=== PATIENT | female | born 1955 | race Hispanic/Latino ===

== ENCOUNTER 2017-07-31 10:19 | Emergency (ER) | payer MEDICAID ==
[2017-07-31 10:19] VITALS: BMI 31.5
[2017-07-31 10:38] VITALS: TEMP 98.1
[2017-07-31 11:32] VITALS: RESP 20; O2SAT 95
[2017-07-31 11:35] LABS: BASO # 0.1 K/uL (0.0-0.2); BASO % 0.8 % (0.0-2.0); EOS # 0.3 K/uL (0.0-0.7); LYMPH # 1.7 K/uL (1.0-4.3); MEAN CORPUSCULAR HGB CONC 31.2 g/dL (33.0-37.0); MEAN PLATELET VOLUME 6.8 fL (7.2-11.7); MONO # 0.6 K/uL (0.0-0.8); MONO % 5.3 % (0.0-10.0); NEUT # 8.8 K/uL (1.8-7.0); NEUT % 75.9 % (50.0-75.0); RBC 3.9 Mil/uL (3.80-5.20); RED CELL DISTRIBUTION WIDTH 17.1 % (11.5-14.5); WHITE BLOOD COUNT 11.6 K/uL (4.8-10.8)
[2017-07-31 11:42] LABS: MEAN CELL VOLUME 73.6 fL (81.0-99.0)
[2017-07-31 11:48] LABS: ALBUMIN 3.7 g/dL (3.5-5.0); ALT/SGPT 34 U/L (9-52); AST/SGOT 20 U/L (14-36); BLOOD UREA NITROGEN 9 mg/dL (7-17); GFR AFRICAN-AMERICAN > 60; GFR NON-AFRICAN AMERICAN > 60
--- NOTE | 2017-07-31 11:52 | RAD ---
HISTORY: cough, fever COMPARISON: Chest x-ray performed 11/15/15 TECHNIQUE: Chest PA and lateral FINDINGS: Examination limited by habitus. LUNGS: Medial left upper lobe and right lower lobe consolidations (likely pneumonia and/or atelectasis). Please note that chest x-ray has limited sensitivity for the detection of pulmonary masses. PLEURA: No significant pleural effusion identified. No definite pneumothorax . CARDIOVASCULAR: Cardiomegaly. OSSEOUS STRUCTURES: Degenerative changes. VISUALIZED UPPER ABDOMEN: Unremarkable. OTHER FINDINGS: None. IMPRESSION: Medial left upper lobe and right lower lobe consolidations (likely pneumonia and/or atelectasis). Correlate clinically and recommend follow-up upon completion of treatment for acute symptoms in order to assess for complete resolution. Cardiomegaly.
[2017-07-31 11:53] LABS: SQUAMOUS EPITHIAL 2 /hpf (0-5); URINE BILIRUBIN NEGATIVE (NEGATIVE); URINE BLOOD NEGATIVE (NEGATIVE); URINE CLARITY Hazy (Clear); URINE COLOR Amber (YELLOW); URINE GLUCOSE (UA) NORMAL (Normal); URINE LEUKOCYTE ESTERASE 1+ Leu/uL (Negative); URINE NITRATE NEGATIVE (NEGATIVE); URINE PROTEIN 1+ mg/dL (NEGATIVE); URINE UROBILINOGEN NORMAL mg/dL (0.2-1.0)
--- NOTE | 2017-07-31 12:15 | C.PDOC ---
History Of Present Illness 62-year-old female, presents to the emergency department with complaints of generalized weakness, cough, dizziness, fever and heaviness in chest for the past few days. Patient denies nausea/vomiting, back pain, symptoms, change in bowel habits or any other associated symptoms. No other complaint at this time Time Seen by Provider: 07/31/17 10:47 Chief Complaint (Nursing): Shortness Of Breath History Per: Patient History/Exam Limitations: no limitations Onset/Duration Of Symptoms: Days Current Symptoms Are (Timing): Still Present Past Medical History Reviewed: Historical Data, Nursing Documentation, Vital Signs Vital Signs: Last Vital Signs Temp 98.1 F 07/31/17 10:35 Pulse 97 H 07/31/17 12:31 Resp 20 07/31/17 12:31 BP 119/68 07/31/17 12:31 Pulse Ox 95 07/31/17 19:06 - Medical History PMH: Arthritis Family History: States: No Known Family Hx - Social History Hx Tobacco Use: No Hx Alcohol Use: Yes Hx Substance Use: No - Immunization History Hx Tetanus Toxoid Vaccination: No Hx Influenza Vaccination: No Hx Pneumococcal Vaccination: No Review Of Systems Except As Marked, All Systems Reviewed And Found Negative. Constitutional: Positive for: Fever, Weakness Cardiovascular: Negative for: Chest Pain Respiratory: Positive for: Cough. Negative for: Shortness of Breath, Sputum Gastrointestinal: Negative for: Nausea, Vomiting Musculoskeletal: Negative for: Back Pain Skin: Negative for: Rash Neurological: Positive for: Dizziness. Negative for: Headache Physical Exam - Physical Exam Appears: Well, Non-toxic, No Acute Distress Skin: Normal Color, Warm, Dry, No Rash Head: Atraumatic, Normacephalic Eye(s): bilateral: Normal Inspection, PERRL, EOMI Nose: Normal Oral Mucosa: Moist Lips: Normal Appearing Throat: No Erythema, No Exudate Neck: Normal ROM, Trachea Midline, Supple, Other (No meningeal signs) Chest: Symmetrical, No Tenderness Cardiovascular: Rhythm Regular, No Friction Rub, No Murmur Respiratory: No Accessory Muscle Use, Rhonchi, No Wheezing Gastrointestinal/Abdominal: Soft, No Tenderness Back: Normal Inspection, No CVA Tenderness Extremity: Normal ROM, No Tenderness, No Deformity, No Swelling Neurological/Psych: Oriented x3, Normal Speech, Normal Motor Gait: Steady ED Course And Treatment - Laboratory Results Result Diagrams: 07/31/17 11:31 07/31/17 11:31 O2 Sat by Pulse Oximetry: 95 (RA) Pulse Ox Interpretation: Normal Progress Note: IMPRESSION: Medial left upper lobe and right lower lobe consolidations (likely pneumonia and/or atelectasis). Correlate clinically and recommend follow-up upon completion of treatment for acute symptoms in order to assess for complete resolution. Cardiomegaly. Medical Decision Making Medical Decision Making: Plan: * EKG * Chest X-Ray * Labs * UA * Influenza AB * Reassess and Disposition Reassess: Case discussed with Dr Gallagher, states patient does not meet criteria for admission at this time, due to stable labs and vital signs. Patients O2 sat 95% RA. On re-exam, the patient reports improvement of symptoms. Lungs are CTA, heart is RRR, abdomen is soft, non-tender and tolerating PO well. Ambulatory in the ED with steady gait Disposition - Disposition Referrals: Scott Gallagher MD [Staff Provider] - Disposition: HOME/ ROUTINE Disposition Time: 12:00 Condition: FAIR Additional Instructions: Follow up with the medical doctor within 1-2 days. Return if worsened. Prescriptions: Azithromycin [Zithromax] 250 mg PO DAILY #6 tab Cephalexin [Keflex] 500 mg PO BID #19 capsule Ibuprofen [Motrin] 1 tab PO TID PRN #30 tab PRN Reason: Pain Instructions: Pneumonia, Adult (DC) Forms: [facility] (Welsh) - POA Present On Arrival: None - Clinical Impression Clinical Impression: Community acquired pneumonia - Scribe Statement The provider has reviewed the documentation as recorded by the Scribe (Tita Francois) All medical record entries made by the Scribe were at my direction and personally dictated by me. I have reviewed the chart and agree that the record accurately reflects my personal performance of the history, physical exam, medical decision making, and the department course for this patient. I have also personally directed, reviewed, and agree with the discharge instructions and disposition.
[2017-07-31 12:32] VITALS: BP 119/68; PULSE 97
[2017-07-31] MEDS ORDERED: cefTRIAXone IV 1 gm in Dextros 50 ML IV ONE (13:03)
[2017-07-31] MEDS ORDERED: cefTRIAXone IV 1 gm in Dextros 50 ML IVPB ONE (13:11)
--- NOTE | 2017-08-02 09:01 | CARD ---
APPROVED REPORT EKG Measurement Heart [id number] <Conclusion> Sinus tachycardia Right bundle branch block Left anterior fascicular block Bifascicular block Abnormal ECG
== END 2017-07-31 14:04 | disposition home or self-care (01) ==
LOC: C.ER 10:19
DX: J18.9 Pneumonia, unspecified organism (principal)
CPT/HCPCS: 71046; 80053; 81001; 84484; 85025; 87040; 87804; 93005; 96365; 99285; J0696

== ENCOUNTER 2017-08-04 05:35 | Emergency (ER) | payer MEDICAID ==
[2017-08-04 05:35] VITALS: BMI 31.5
--- NOTE | 2017-08-04 05:50 | C.PDOC ---
History Of Present Illness Patient was diagnosed with pneumonia 4 days ago and treated with zithromax and keflex. Pt states that she does not feel well. Somewhat anxious. Speaking in complete sentences. No f/c/n/v. States that she feels as if she's not getting enough air. No chest pain or palpitations Time Seen by Provider: 08/04/17 05:50 Chief Complaint (Nursing): Medical Clearance History Per: Patient History/Exam Limitations: no limitations Onset/Duration Of Symptoms: Days Current Symptoms Are (Timing): Still Present Severity: Moderate Pain Scale Rating Of: 4 Reports Recently: Seen In ED, Treated By A Physician Recent travel outside of the [place]: No Additional History Per: Patient Past Medical History Reviewed: Historical Data, Nursing Documentation, Vital Signs Vital Signs: Last Vital Signs Temp 99.2 F 08/04/17 05:42 Pulse 105 H 08/04/17 05:42 Resp 20 08/04/17 05:49 BP 135/80 08/04/17 05:42 Pulse Ox 94 L 08/04/17 06:09 - Medical History PMH: Arthritis, Pneumonia (07/31/17) Family History: States: No Known Family Hx - Social History Hx Tobacco Use: No Hx Alcohol Use: Yes Hx Substance Use: No - Immunization History Hx Tetanus Toxoid Vaccination: No Hx Influenza Vaccination: No Hx Pneumococcal Vaccination: No Review Of Systems Constitutional: Negative for: Fever, Chills Eyes: Negative for: Redness ENT: Negative for: Throat Pain Cardiovascular: Negative for: Chest Pain Respiratory: Positive for: Shortness of Breath Gastrointestinal: Negative for: Nausea, Vomiting, Abdominal Pain Genitourinary: Negative for: Dysuria Musculoskeletal: Negative for: Back Pain Skin: Negative for: Rash Neurological: Negative for: Weakness Psych: Positive for: Anxiety Physical Exam - Physical Exam Appears: Non-toxic, No Acute Distress Skin: Warm, Dry Head: Normacephalic Eye(s): bilateral: Normal Inspection Oral Mucosa: Moist Teeth: Edentulous Throat: No Erythema Neck: Trachea Midline, Supple Chest: Symmetrical Cardiovascular: Rhythm Regular Respiratory: Decreased Breath Sounds, No Rales, Rhonchi, No Wheezing Gastrointestinal/Abdominal: Soft, No Tenderness, No Distention Back: No CVA Tenderness Extremity: Normal ROM Extremity: Bilateral: Atraumatic Pulses: Left Dorsalis Pedis: Normal, Right Dorsalis Pedis: Normal Neurological/Psych: Oriented x3, Normal Speech, Normal Cognition Gait: Steady ED Course And Treatment - Laboratory Results Result Diagrams: 08/04/17 06:24 08/04/17 06:24 ECG: Interpreted By Me, Viewed By Me ECG Rhythm: Sinus Rhythm (88), R BBB, Nonspecific Changes O2 Sat by Pulse Oximetry: 94 Pulse Ox Interpretation: Normal - Radiology CXR: Interpreted by Me, Viewed By Me Reevaluation Time: 06:45 Reassessment Condition: Improved Disposition Counseled Patient/Family Regarding: Studies Performed, Diagnosis, Need For Followup, Rx Given - Disposition Referrals: Scott Gallagher MD [Primary Care Provider] - Disposition: HOME/ ROUTINE Disposition Time: 05:50 Condition: FAIR Additional Instructions: Please finish your antibiotics Prescriptions: Albuterol HFA [Ventolin HFA 90 mcg/actuation (8 g)] 2 puff IH [id number] #1 puff Instructions: Pneumonia in Adults Forms: [facility] (Belarusian) - Clinical Impression Clinical Impression: Community acquired pneumonia
[2017-08-04] MEDS ORDERED: Sodium Chloride 0.9% 1,000 ML IV ONE (06:00)
[2017-08-04] MEDS ORDERED: Albuterol-Ipratrop 3 mg / 0.5 (3 ml) UD ONE ×2 (06:18→06:59)
[2017-08-04 06:22] LABS: ABG ALLEN TEST POS; ARTERIAL BLOOD GAS HCO3 31.5 mmol/L (21-28); ARTERIAL BLOOD GAS O2 SAT 97.3 % (95-98); ARTERIAL BLOOD GAS PCO2 38 mm/Hg (35-45); ARTERIAL BLOOD GAS PH 7.53 (7.35-7.45); ARTERIAL BLOOD GAS PO2 76 mm/Hg (80-100)
[2017-08-04] MEDS: Albuterol-Ipratrop 3 mg / 0.5 (3 ml) UD IH SCH (06:22)
[2017-08-04 06:26] LABS: BASO % 0.2 % (0.0-2.0); EOS # 0.3 K/uL (0.0-0.7); EOS % 2.7 % (0.0-4.0); LYMPH # 1.8 K/uL (1.0-4.3); LYMPH % 13.9 % (20.0-40.0); MEAN CELL VOLUME 73.8 fL (81.0-99.0); MEAN CORPUSCULAR HEMOGLOBIN 23.3 pg (27.0-31.0); MEAN CORPUSCULAR HGB CONC 31.6 g/dL (33.0-37.0); MEAN PLATELET VOLUME 6.8 fL (7.2-11.7); MONO # 0.7 K/uL (0.0-0.8); MONO % 5.9 % (0.0-10.0); NEUT # 9.7 K/uL (1.8-7.0); NEUT % 77.3 % (50.0-75.0); RBC 3.86 Mil/uL (3.80-5.20); RED CELL DISTRIBUTION WIDTH 17.6 % (11.5-14.5); WHITE BLOOD COUNT 12.6 K/uL (4.8-10.8)
[2017-08-04] MEDS ORDERED: Sodium Chloride 0.9% 1,000 ML ONE (06:30)
[2017-08-04 06:35] LABS: INR 1.6; PROTHROMBIN TIME 18.4 SECONDS (9.7-12.2)
[2017-08-04 06:41] LABS: ALB/GLOB RATIO 0.9 (1.0-2.1); ALBUMIN 3.5 g/dL (3.5-5.0); ALT/SGPT 46 U/L (9-52); AST/SGOT 26 U/L (14-36); BLOOD UREA NITROGEN 6 mg/dL (7-17); CALCIUM 8.9 mg/dl (8.6-10.4); GFR AFRICAN-AMERICAN > 60; GFR NON-AFRICAN AMERICAN > 60; MAGNESIUM 2.1 mg/dL (1.6-2.3)
[2017-08-04] MEDS ORDERED: MethylPREDNISolone 40 mg Vial IVP STA (06:55)
[2017-08-04] MEDS ORDERED: Albuterol-Ipratrop 3 mg / 0.5 (3 ml) UD INH STA (06:55)
[2017-08-04 07:58] VITALS: O2SAT 95
[2017-08-04 08:05] VITALS: BP 125/68; PULSE 108; RESP 16; TEMP 99
--- NOTE | 2017-08-04 08:55 | RAD ---
PROCEDURE: CHEST RADIOGRAPH, 1 VIEW HISTORY: SOB COMPARISON: 07/31/2017 FINDINGS: LUNGS: Increasing opacity left superior paramediastinal. Infiltrate versus atelectasis. No other abnormal opacity seen elsewhere. PLEURA: No pneumothorax or pleural fluid seen. CARDIOVASCULAR: Normal. OSSEOUS STRUCTURES: No significant abnormalities. VISUALIZED UPPER ABDOMEN: Normal. OTHER FINDINGS: None. IMPRESSION: Increasing superior left paramediastinal opacity. Infiltrate versus atelectasis. Followup to clearing to exclude underlying neoplasm. Consider further evaluation with computed tomography of the chest.
--- NOTE | 2017-08-04 22:53 | CARD ---
APPROVED REPORT EKG Measurement Heart [id number] HI [id number] <Conclusion> Normal sinus rhythm Right bundle branch block Abnormal ECG
== END 2017-08-04 08:00 | disposition home or self-care (01) ==
LOC: C.ER 05:35 → SUPCPDRO 05:35 → C.ER 08:00
DX: J18.9 Pneumonia, unspecified organism (principal); Z87.891 Personal history of nicotine dependence
CPT/HCPCS: 36600; 71045; 80053; 82803; 83735; 85025; 85610; 85730; 87040; 93005; 96361; 96374; 99285; J2920; J7040

== ENCOUNTER 2017-08-04 10:34 | Inpatient (IN) | payer MEDICAID ==
[2017-08-04 10:35] VITALS: BMI 31.5
[2017-08-04 11:34] LABS: BASO % 0.2 % (0.0-2.0); EOS % 0.1 % (0.0-4.0); HEMOGLOBIN 9.1 g/dL (11.0-16.0); LYMPH # 0.7 K/uL (1.0-4.3); LYMPH % 4.8 % (20.0-40.0); MEAN CELL VOLUME 73.9 fL (81.0-99.0); MEAN CORPUSCULAR HGB CONC 31.1 g/dL (33.0-37.0); MEAN PLATELET VOLUME 6.9 fL (7.2-11.7); MONO # 0.2 K/uL (0.0-0.8); MONO % 1.1 % (0.0-10.0); NEUT # 14.3 K/uL (1.8-7.0); NEUT % 93.8 % (50.0-75.0); PLATELET COUNT 573 K/uL (130-400); RBC 3.97 Mil/uL (3.80-5.20); RED CELL DISTRIBUTION WIDTH 17.1 % (11.5-14.5); WHITE BLOOD COUNT 15.3 K/uL (4.8-10.8)
[2017-08-04] MEDS ORDERED: Iodixanol 320 mg/ml 150 ml Bottle IV ONE ×2 (11:50→12:34)
[2017-08-04 12:08] LABS: ANISOCYTOSIS SLIGHT; BANDS 2 % (0-2); BASOPHIL 1 % (0-2); EOSINOPHIL 1 % (0-4); LYMPHOCYTE 4 % (20-40); MONOCYTE 1 % (0-10); NEUTROPHIL 91 % (50-75); PLATELET ESTIMATE INCREASED (NORMAL); POIKILOCYTOSIS SLIGHT; TOTAL CELLS COUNTED 100
[2017-08-04 12:09] LABS: HYPOCHROMIC SLIGHT; MICROCYTOSIS SLIGHT
--- NOTE | 2017-08-04 12:12 | C.PDOC ---
History Of Present Illness 62 yo female came back to ED after was called back secondary to radiology discrepancy. Pt reports, had cold sx for past 3 days associated with malaise, dry cough, SOB. Pt was seen twice on 08/03/17 adn 08/04/17 and diagnosed with PNA, pt received Rx: Zithromax, Keflex, currently taking. Radiology reading from 08/04/17: increasing superior left paramediastinal opacity. Infiltrate vs atelectasis. F/u to exclude neoplasm. Case was discussed with pt's PMD , recommend to call back patient for CT chest. Time Seen by Provider: 08/04/17 10:35 Chief Complaint (Nursing): Abdominal Pain History Per: Patient Past Medical History Reviewed: Historical Data, Nursing Documentation, Vital Signs Vital Signs: Last Vital Signs Temp 98.6 F 08/04/17 13:15 Pulse 105 H 08/04/17 13:15 Resp 18 08/04/17 13:15 BP 150/92 H 08/04/17 10:43 Pulse Ox 96 08/04/17 16:10 - Medical History PMH: Arthritis, Pneumonia (07/31/17) Family History: States: Unknown Family Hx - Social History Hx Tobacco Use: No Hx Alcohol Use: Yes Hx Substance Use: No - Immunization History Hx Tetanus Toxoid Vaccination: No Hx Influenza Vaccination: No Hx Pneumococcal Vaccination: No Review Of Systems Except As Marked, All Systems Reviewed And Found Negative. Constitutional: Positive for: Malaise. Negative for: Fever, Chills ENT: Positive for: Nose Discharge, Nose Congestion. Negative for: Throat Pain Cardiovascular: Negative for: Chest Pain, Palpitations, Edema, Light Headedness Respiratory: Positive for: Cough, Shortness of Breath. Negative for: Wheezing Gastrointestinal: Negative for: Nausea, Vomiting, Abdominal Pain, Diarrhea Genitourinary: Negative for: Dysuria, Frequency Musculoskeletal: Negative for: Neck Pain Skin: Negative for: Rash Neurological: Negative for: Altered Mental Status Physical Exam - Physical Exam Appears: Well, Non-toxic, No Acute Distress Skin: Normal Color, Warm, Dry, No Rash Head: Normacephalic Eye(s): bilateral: PERRL Nose: No Flaring, No Discharge Oral Mucosa: Moist, No Drooling Throat: No Erythema, No Drooling Neck: Trachea Midline, Supple Cardiovascular: Rhythm Regular (tachy), No Murmur Respiratory: No Decreased Breath Sounds, No Accessory Muscle Use, No Stridor, No Wheezing Gastrointestinal/Abdominal: Soft, No Tenderness, No Distention, No Guarding Extremity: Normal ROM, No Pedal Edema, No Deformity Neurological/Psych: Oriented x3, Normal Speech ED Course And Treatment - Laboratory Results Result Diagrams: 08/04/17 11:29 ECG: Interpreted By Me, Viewed By Me Interpretation Of ECG: Sinus tachy@105/min, RBBB, no acute ST-T changes. O2 Sat by Pulse Oximetry: 96 Pulse Ox Interpretation: Normal - CT Scan/US CTA chest Other Rad Studies (CT/US): Radiology Report Reviewed CT/US Interpretation: PROCEDURE: CT Chest with contrast (Pulmonary Angiogram). HISTORY: SOB. COMPARISON: None available. TECHNIQUE: Axial computed tomography images were obtained of the chest in the pulmonary arterial phase of enhancement. Coronal and sagittal reformatted images were created and reviewed. Intravenous contrast dose: 100 mL Visipaque 320. Radiation dose: Total exam DLP = 578.57 mGy-cm. This CT exam was performed using one or more of the following dose reduction techniques: Automated exposure control, adjustment of the mA and/or kV according to patient size, and/or use of iterative reconstruction technique. FINDINGS: PULMONARY ARTERIES: Technically limited examination. No evidence of central pulmonary embolism. Subsegmental pulmonary artery branches are inadequately evaluated on the basis of this examination. Main, lobar and segmental vessels are adequately evaluated. AORTA: No acute findings. No thoracic aortic aneurysm. LUNGS: Pleural-based left upper lobe pulmonary mass measuring roughly 8.6 x 2.3 x 9.7 cm, with direct extension to the left hilum where there is hilar lymphadenopathy and marked narrowing of the left upper lobe pulmonary artery branches. PLEURAL SPACES: Unremarkable. No effusion or pneuomothorax. HEART: Normal heart size. No pericardial effusion. LYMPH NODES: Extensive left hilar and mediastinal lymphadenopathy. BONES, CHEST WALL: No lytic or blastic osseous lesion is identified. OTHER FINDINGS: Unremarkable. IMPRESSION: No evidence of pulmonary embolism. Evaluation technically limited and subsegmental pulmonary artery branches are not adequately evaluated. Large pleural-based left upper lobe mass directly extending to the hilum and with extensive associated mediastinal lymphadenopathy. Marked narrowing of left upper lobe pulmonary artery branches. Findings discussed by telephone with Dr. Ruth at 1:12 p.m. on 2017 Progress Note: Complete blood work review from early this AM visit and current. Case discussed with again, results review, admission recommend at present time for further evaluation of new LISA lumg mass. results discussed with pt. Understand and agrees with plan. Pt remained stable during the ED evaluation.Afebrile, hemodynamicaly stable. Disposition - Disposition Disposition: HOSPITALIZED Disposition Time: 13:28 Condition: STABLE - Clinical Impression Clinical Impression: Dyspnea, Lung mass
[2017-08-04 12:20] LABS: B-TYPE NATRIURETIC PEPTIDE 88.3 pg/mL (0-900)
--- NOTE | 2017-08-04 13:16 | CT ---
PROCEDURE: CT Chest with contrast (Pulmonary Angiogram) HISTORY: SOB COMPARISON: None available. TECHNIQUE: Axial computed tomography images were obtained of the chest in the pulmonary arterial phase of enhancement. Coronal and sagittal reformatted images were created and reviewed. Intravenous contrast dose: 100 mL Visipaque 320 Radiation dose: Total exam DLP = 578.57 mGy-cm. This CT exam was performed using one or more of the following dose reduction techniques: Automated exposure control, adjustment of the mA and/or kV according to patient size, and/or use of iterative reconstruction technique. FINDINGS: PULMONARY ARTERIES: Technically limited examination. No evidence of central pulmonary embolism. Subsegmental pulmonary artery branches are inadequately evaluated on the basis of this examination. Main, lobar and segmental vessels are adequately evaluated. AORTA: No acute findings. No thoracic aortic aneurysm. LUNGS: Pleural-based left upper lobe pulmonary mass measuring roughly 8.6 x 2.3 x 9.7 cm, with direct extension to the left hilum where there is hilar lymphadenopathy and marked narrowing of the left upper lobe pulmonary artery branches. PLEURAL SPACES: Unremarkable. No effusion or pneuomothorax. HEART: Normal heart size. No pericardial effusion. LYMPH NODES: Extensive left hilar and mediastinal lymphadenopathy. BONES, CHEST WALL: No lytic or blastic osseous lesion is identified. OTHER FINDINGS: Unremarkable. IMPRESSION: No evidence of pulmonary embolism. Evaluation technically limited and subsegmental pulmonary artery branches are not adequately evaluated. Large pleural-based left upper lobe mass directly extending to the hilum and with extensive associated mediastinal lymphadenopathy. Marked narrowing of left upper lobe pulmonary artery branches. Findings discussed by telephone with Dr. Ruth at 1:12 p.m. on 08/04/2017
[2017-08-04] MEDS: Albuterol 0.042% Inhal Sol (1.25 mg/3 mL) UD INH SCH (19:25)
--- NOTE | 2017-08-04 21:32 | CP.PCM.HP ---
History of Present Illness - History of Present Illness History of Present Illness: Patient was seen yesterday at [facility] ER yesterday still having congestion. Following discussion of chest xray, patient returned to ER for a CT scan of the chest. Proceedure demonstrated an upper lobe lung mass and patient was admitted. Present on Admission - Present on Admission Any Indicators Present on Admission: No History of DVT/PE: No History of Uncontrolled Diabetes: No Urinary Catheter: No Decubitus Ulcer Present: No History Surgical Site Infection Following: None Review of Systems - Review of Systems All systems: reviewed and no additional remarkable complaints except - Constitutional Constitutional: Fatigue, Fever, Malaise - Respiratory Respiratory: Dyspnea on Exertion Past Patient History - Infectious Disease Hx of Infectious Diseases: None - Past Medical History & Family History Past Medical History?: Yes - Past Social History Smoking Status: Never Smoked Chewing Tobacco Use: No Cigar Use: No Home Situation {Lives}: With Family - CARDIAC Hx Cardiac Disorders: No - PULMONARY Hx Respiratory Disorders: Yes Hx Pneumonia: Yes (07/31/17) - NEUROLOGICAL Hx Neurological Disorder: No - HEENT Hx HEENT Problems: No - RENAL Hx Chronic Kidney Disease: No Hx Dialysis: No - ENDOCRINE/METABOLIC Hx Endocrine Disorders: No - HEMATOLOGICAL/ONCOLOGICAL Hx Blood Disorders: No - INTEGUMENTARY Hx Dermatological Problems: No - MUSCULOSKELETAL/RHEUMATOLOGICAL Hx Musculoskeletal Disorders: Yes Hx Arthritis: Yes Hx Falls: No - GASTROINTESTINAL Hx Gastrointestinal Disorders: No - GENITOURINARY/GYNECOLOGICAL Hx Genitourinary Disorders: Yes Other/Comment: prolapsed uterus - PSYCHIATRIC Hx Psychophysiologic Disorder: No Hx Substance Use: No - SURGICAL HISTORY Hx Surgeries: Yes Hx Section: Yes - ANESTHESIA Hx Anesthesia: Yes Hx Anesthesia Reactions: No Hx Malignant Hyperthermia: No Has any member of the family had a problem w/ anesthesia?: No Meds Allergies/Adverse Reactions: Allergies Allergy/AdvReac Type Severity Reaction Status Date / Time No Known Allergies Allergy Verified 08/04/17 10:45 Physical Exam - Head Exam Head Exam: ATRAUMATIC - Respiratory Exam Respiratory Exam: Decreased Breath Sounds - Cardiovascular Exam Cardiovascular Exam: REGULAR RHYTHM - GI/Abdominal Exam GI & Abdominal Exam: Normal Bowel Sounds - Exam Exam: NORMAL INSPECTION External exam: NORMAL EXTERNAL EXAM - Neurological Exam Neurological exam: Oriented x3 - Psychiatric Exam Psychiatric exam: Depressed Results - Vital Signs Recent Vital Signs: Last Vital Signs Temp 98.7 F 08/04/17 18:07 Pulse 110 H 08/04/17 18:07 Resp 18 08/04/17 18:07 BP 138/74 08/04/17 18:07 Pulse Ox 99 08/04/17 18:07 - Labs Result Diagrams: 08/04/17 11:29 Labs: Laboratory Results - last 24 hr 08/04/17 08/04/17 08/04/17 11:29 11:45 11:51 WBC 15.3 H RBC 3.97 Hgb 9.1 L Hct 29.3 L MCV 73.9 L MCH 23.0 L MCHC 31.1 L RDW 17.1 H Plt Count 573 H MPV 6.9 L Neut % (Auto) 93.8 H Lymph % (Auto) 4.8 L [place] % (Auto) 1.1 Eos % (Auto) 0.1 Baso % (Auto) 0.2 Neut # (Auto) 14.3 H Lymph # (Auto) 0.7 L [place] # (Auto) 0.2 Eos # (Auto) 0.0 Baso # (Auto) 0.0 Neutrophils % (Manual) 91 H Band Neutrophils % 2 Lymphocytes % (Manual) 4 L Monocytes % (Manual) 1 Eosinophils % (Manual) 1 Basophils % (Manual) 1 Platelet Estimate Increased H Hypochromasia (manual) Slight Poikilocytosis (manual Slight Anisocytosis (manual) Slight Microcytosis (manual) Slight ESR 84 H Troponin I < 0.0120 NT-Pro-B Natriuret Pep 88.3 Influenza Typ A,B (EIA) Negative for flu a/b Assessment & Plan (1) Dyspnea Status: Acute (2) Lung mass Status: Acute (3) Arthritis Status: Acute (4) Pharyngitis Status: Acute
[2017-08-05 00:49] VITALS: RESP 20
[2017-08-05] MEDS: Albuterol HFA 90 mcg/actuation (8 g) IH SCH ×4 (02:28→19:17)
[2017-08-05] MEDS: Albuterol 0.042% Inhal Sol (1.25 mg/3 mL) UD INH SCH ×3 (02:28→13:48)
[2017-08-05 06:16] LABS: BASO # 0.1 K/uL (0.0-0.2); BASO % 0.4 % (0.0-2.0); EOS % 0.1 % (0.0-4.0); LYMPH # 2.2 K/uL (1.0-4.3); MEAN CORPUSCULAR HEMOGLOBIN 23.1 pg (27.0-31.0); MEAN CORPUSCULAR HGB CONC 31.6 g/dL (33.0-37.0); MEAN PLATELET VOLUME 6.9 fL (7.2-11.7); MONO # 1.1 K/uL (0.0-0.8); MONO % 5.5 % (0.0-10.0); NEUT # 16.4 K/uL (1.8-7.0); RBC 3.88 Mil/uL (3.80-5.20); RED CELL DISTRIBUTION WIDTH 17.4 % (11.5-14.5); WHITE BLOOD COUNT 19.8 K/uL (4.8-10.8)
[2017-08-05] MEDS ORDERED: Enoxaparin 40 mg Syringe SC SCH (10:00)
[2017-08-05] MEDS ORDERED: Iodixanol 320 mg/ml 150 ml Bottle IV ONE (10:47)
--- NOTE | 2017-08-05 11:52 | CT ---
PROCEDURE: CT Abdomen and Pelvis with contrast HISTORY: Abdominal pain COMPARISON: None. TECHNIQUE: CT scan of the abdomen and pelvis was performed after intravenous administration of contrast. Oral contrast was not administered. Coronal and sagittal reformatted images were obtained. Contrast dose: 100 mL Visipaque Radiation dose: Total exam DLP = 1037.96 mGy-cm. This CT exam was performed using one or more of the following dose reduction techniques: Automated exposure control, adjustment of the mA and/or kV according to patient size, and/or use of iterative reconstruction technique. FINDINGS: LOWER THORAX: The lung bases are clear. LIVER: The liver is normal in size and there is homogeneous enhancement. No gross lesion or ductal dilatation. GALLBLADDER AND BILE DUCTS: There are no calcified gallstones. The gallbladder is contracted. PANCREAS: Normal in size with homogeneous enhancement. No gross lesion or ductal dilatation. SPLEEN: There is mild splenomegaly without focal lesion. ADRENALS: No discrete nodule. KIDNEYS AND URETERS: Both kidneys are normal in size and there is homogeneous enhancement. No hydronephrosis. No solid mass. VASCULATURE: There are atherosclerotic aortoiliac calcifications. No aortic aneurysm. BOWEL: The stomach is fluid-filled. The small bowel loops are normal in caliber. There is mild colonic diverticulosis without CT evidence for acute diverticulitis. No bowel dilatation or obstruction. APPENDIX: Not visualized. No inflammatory changes in the right lower quadrant. PERITONEUM: No free fluid. No free air. LYMPH NODES: Few subcentimeter lymph nodes in the right lower quadrant. No enlarged lymph nodes. BLADDER: Decompressed. REPRODUCTIVE: Enlarged fibroid uterus with calcified and noncalcified fibroids. A low density lesion in the fundus could represent cystic degeneration in a fibroid however other mass lesions cannot be excluded. BONES: No acute fracture. OTHER FINDINGS: None. IMPRESSION: No acute abdominal or pelvic abnormality. Mild splenomegaly. Mild colonic diverticulosis without CT evidence for acute diverticulitis. Enlarged fibroid uterus. A low density lesion in the fundus of the uterus could represent cystic degeneration in the fibroid however other mass lesion cannot be excluded. Correlation with pelvic ultrasound is advised.
[2017-08-05] MEDS: Piperacill/Tazo 3.375gm in Dex 3.375 GM/50 ML BAG IVPB SCH ×2 (13:58→19:32)
--- NOTE | 2017-08-05 15:12 | CP.PCM.CON ---
History of Present Illness - History of Present Illness History of Present Illness: Reason for consultation: Left upper lobe mass. Requested by Dr. Gallagher Pt s/e at the bedside. 62yo female, with smoking hx, and recent wt loss(20#/one month) who was admitted with incidentally discovered left upper lobe density which on CT in the ER was noted to be left upper lobe mass. She is scheduled for transthoracic percutaneous bx tomorrow by IR. Based on imaging studies(ct and cxr): T3, N2, M0 -Stage IIIA, if pulmonary malignancy. Will probably upstage with a furhter w/u. I would recommend PET ct, PFTs with ABG on room air. Will follow. a/p: Left lung mass. Etiol ? T3, N0, M0-Stage IIIA, if pulmonary malignancy. Percutaneous Bx as scheduled. PET scan, PFTs with ABG on room air. Bronchoscopy. D/W Brenden Gallagher and Wade. Will follow. Past Patient History - Infectious Disease Hx of Infectious Diseases: None - Past Medical History & Family History Past Medical History?: Yes - Past Social History Smoking Status: Never Smoked Chewing Tobacco Use: No Cigar Use: No Home Situation {Lives}: With Family - CARDIAC Hx Cardiac Disorders: No - PULMONARY Hx Respiratory Disorders: Yes Hx Pneumonia: Yes (07/31/17) - NEUROLOGICAL Hx Neurological Disorder: No - HEENT Hx HEENT Problems: No - RENAL Hx Chronic Kidney Disease: No Hx Dialysis: No - ENDOCRINE/METABOLIC Hx Endocrine Disorders: No - HEMATOLOGICAL/ONCOLOGICAL Hx Blood Disorders: No - INTEGUMENTARY Hx Dermatological Problems: No - MUSCULOSKELETAL/RHEUMATOLOGICAL Hx Musculoskeletal Disorders: Yes Hx Arthritis: Yes Hx Falls: No - GASTROINTESTINAL Hx Gastrointestinal Disorders: No - GENITOURINARY/GYNECOLOGICAL Hx Genitourinary Disorders: Yes Other/Comment: prolapsed uterus - PSYCHIATRIC Hx Psychophysiologic Disorder: No Hx Substance Use: No - SURGICAL HISTORY Hx Surgeries: Yes Hx Section: Yes - ANESTHESIA Hx Anesthesia: Yes Hx Anesthesia Reactions: No Hx Malignant Hyperthermia: No Has any member of the family had a problem w/ anesthesia?: No Meds Allergies/Adverse Reactions: Allergies Allergy/AdvReac Type Severity Reaction Status Date / Time No Known Allergies Allergy Verified 08/04/17 10:45 - Medications Medications: Current Medications Albuterol (Ventolin Hfa 90 Mcg/Actuation (8 G)) 2 puff IH RQ6 [facility] Last Admin: 08/05/17 13:49 Dose: Not Given Albuterol Sulfate (Albuterol 0.042% Inhal Saida (1.25mg/3ml) Ud) 1.25 mg INH RQ6 [facility] Last Admin: 08/05/17 13:48 Dose: 1.25 mg Heparin Sodium (Porcine) (Heparin) 5,000 units IV Q12 [facility] Piperacillin Sod/Tazobactam Sod (Zosyn 3.375 Gm Iv Premix) 3.375 gm in 50 mls @ 100 mls/hr IVPB Q6H [facility] PRN Reason: Protocol Last Admin: 08/05/17 13:58 Dose: 100 mls/hr Results - Vital Signs Recent Vital Signs: Last Vital Signs Temp 99.3 F 08/05/17 08:39 Pulse 101 H 08/05/17 08:51 Resp 20 08/05/17 08:39 BP 121/70 08/05/17 08:39 Pulse Ox 95 08/05/17 08:39 - Labs Result Diagrams: 08/05/17 06:06 08/05/17 06:06 Labs: Laboratory Results - last 24 hr 08/05/17 08/05/17 06:06 06:06 WBC 19.8 H RBC 3.88 Hgb 9.0 L Hct 28.3 L MCV 73.0 L MCH 23.1 L MCHC 31.6 L RDW 17.4 H Plt Count 545 H MPV 6.9 L Neut % (Auto) 83.0 H Lymph % (Auto) 11.0 L [place] % (Auto) 5.5 Eos % (Auto) 0.1 Baso % (Auto) 0.4 Neut # (Auto) 16.4 H Lymph # (Auto) 2.2 [place] # (Auto) 1.1 H Eos # (Auto) 0.0 Baso # (Auto) 0.1 Sodium 145 Potassium 4.0 Chloride 100 Carbon Dioxide 32 H BUN 6 L Carcinoembryonic Ag 7.5 H
[2017-08-05] MEDS ORDERED: Albuterol 0.042% Inhal Sol (1.25 mg/3 mL) UD INH PRN (19:15)
--- NOTE | 2017-08-05 21:25 | CARD ---
APPROVED REPORT EKG Measurement Heart [id number] <Conclusion> Sinus tachycardia Right bundle branch block Abnormal ECG
[2017-08-05] MEDS: Promethazine 6.25 MG/5 ML CUP PO SCH (22:27)
--- NOTE | 2017-08-05 23:22 | CP.PCM.PN ---
Subjective - Date & Time of Evaluation Date of Evaluation: 08/05/17 Time of Evaluation: 13:20 - Subjective Subjective: Patient alert and responsive. Ct scan of the chest reveals a large upper lobe mass. Consultation with thoracic surgery requested. Objective - Vital Signs/Intake and Output Vital Signs (last 24 hours): Temp Pulse Resp BP Pulse Ox 99.1 F 100 H 20 137/64 96 08/05/17 16:00 08/05/17 16:00 08/05/17 16:00 08/05/17 16:00 08/05/17 16:00 Intake and Output: 08/05/17 08/06/17 18:59 06:59 Intake Total 830 Balance 830 - Medications Medications: Current Medications Albuterol (Ventolin Hfa 90 Mcg/Actuation (8 G)) 2 puff IH RQ6 [facility] Last Admin: 08/05/17 19:17 Dose: 3 mg Albuterol Sulfate (Albuterol 0.042% Inhal Saida (1.25mg/3ml) Ud) 1.25 mg INH RQ6 PRN Alprazolam (Xanax) 0.5 mg PO HS PRN PRN Reason: Anxiety Last Admin: 08/05/17 21:48 Dose: 0.5 mg Heparin Sodium (Porcine) (Heparin) 5,000 units IV Q12 [facility] Piperacillin Sod/Tazobactam Sod (Zosyn 3.375 Gm Iv Premix) 3.375 gm in 50 mls @ 100 mls/hr IVPB Q6H [facility] PRN Reason: Protocol Last Admin: 08/05/17 19:32 Dose: 100 mls/hr Promethazine HCl (Phenergan Syrup) 6.25 mg PO QID [facility] Last Admin: 08/05/17 22:27 Dose: 6.25 mg - Labs Labs: 08/05/17 06:06 08/05/17 06:06 Assessment and Plan (1) Dyspnea Status: Acute (2) Lung mass Status: Acute (3) Arthritis Status: Acute (4) Pharyngitis Status: Acute
[2017-08-06] MEDS: Albuterol HFA 90 mcg/actuation (8 g) IH SCH ×4 (01:53→19:03)
[2017-08-06] MEDS: Piperacill/Tazo 3.375gm in Dex 3.375 GM/50 ML BAG IVPB SCH ×3 (02:45→13:59)
[2017-08-06] MEDS: Promethazine 6.25 MG/5 ML CUP PO SCH ×4 (09:21→21:50)
--- NOTE | 2017-08-06 14:48 | NM ---
PROCEDURE: Whole Body Bone Scan HISTORY: mass of the lung COMPARISON: None available. TECHNIQUE: Following administration of 21.4 miCu of Tc MDP multiplanar whole body images were obtained. FINDINGS: Evidence for bony metastatic disease: None. Degenerative uptake: Bilateral knees and ankles. Degenerative changes also identified in the cervical spine. Physiologic uptake: Normal physiologic activity in the kidneys. Other findings: None. IMPRESSION: No evidence of bony metastatic disease.
[2017-08-06] MEDS ORDERED: Piperacillin/Tazobact 3.375 GM in Sodium Chloride 0.9% 100 ML IVPB SCH (15:00)
[2017-08-06 17:13] LABS: INR 1.7; PROTHROMBIN TIME 19.5 SECONDS (9.7-12.2)
[2017-08-06] MEDS: Piperacillin/Tazobact 3.375 GM in Sodium Chloride 0.9% 100 ML IVPB SCH (19:37)
--- NOTE | 2017-08-06 21:54 | CP.PCM.PN ---
Subjective - Date & Time of Evaluation Date of Evaluation: 08/06/17 Time of Evaluation: 12:40 - Subjective Subjective: Patient had bone scan today. She was evaluated by Dr Ann. Will need broncoscopy. Objective - Vital Signs/Intake and Output Vital Signs (last 24 hours): Temp Pulse Resp BP Pulse Ox 100.6 F H 110 H 20 112/72 95 08/06/17 16:00 08/06/17 16:00 08/06/17 16:00 08/06/17 16:00 08/06/17 16:00 Intake and Output: 08/06/17 08/07/17 18:59 06:59 Intake Total 900 Balance 900 - Medications Medications: Current Medications Albuterol (Ventolin Hfa 90 Mcg/Actuation (8 G)) 2 puff IH RQ6 [facility] Last Admin: 08/06/17 19:03 Dose: Not Given Albuterol Sulfate (Albuterol 0.042% Inhal Saida (1.25mg/3ml) Ud) 1.25 mg INH RQ6 PRN Last Admin: 08/06/17 07:50 Dose: 1.25 mg Alprazolam (Xanax) 0.5 mg PO HS PRN PRN Reason: Anxiety Last Admin: 08/05/17 21:48 Dose: 0.5 mg Heparin Sodium (Porcine) (Heparin) 5,000 units IV Q12 [facility] Last Admin: 08/06/17 09:23 Dose: 5,000 units Piperacillin Sod/Tazobactam (Sod 3.375 gm/ Sodium Chloride) 100 mls @ 100 mls/ hr IVPB Q6H [facility] PRN Reason: Protocol Last Admin: 08/06/17 19:37 Dose: 100 mls/hr Promethazine HCl (Phenergan Syrup) 6.25 mg PO QID [facility] Last Admin: 08/06/17 21:50 Dose: 6.25 mg - Labs Labs: 08/05/17 06:06 08/05/17 06:06 PT 19.5 SECONDS (9.7-12.2) H 08/06/17 17:00 INR 1.7 08/06/17 17:00 APTT 34 SECONDS (21-34) 08/06/17 17:00 - Constitutional Appears: No Acute Distress - Head Exam Head Exam: NORMOCEPHALIC - Eye Exam Eye Exam: Normal appearance - ENT Exam ENT Exam: Normal Oropharynx - Neck Exam Neck Exam: Normal Inspection - Respiratory Exam Respiratory Exam: Decreased Breath Sounds - Cardiovascular Exam Cardiovascular Exam: REGULAR RHYTHM - GI/Abdominal Exam GI & Abdominal Exam: Hyperactive Bowel Sounds - Rectal Exam Rectal Exam: Deferred - Exam External exam: NORMAL EXTERNAL EXAM - Extremities Exam Extremities Exam: Normal Inspection - Back Exam Back Exam: NORMAL INSPECTION - Neurological Exam Neurological Exam: Oriented x3 - Psychiatric Exam Psychiatric exam: Depressed Assessment and Plan (1) Dyspnea Status: Acute (2) Lung mass Status: Acute (3) Arthritis Status: Acute (4) Pharyngitis Status: Acute
--- NOTE | 2017-08-06 23:12 | CON ---
DATE: 08/05/2017 HISTORY OF PRESENT ILLNESS: The patient was seen yesterday by me on consultation. The patient was interviewed in detail and examined, and her condition was discussed with MD and nurse practitioner and orders were written for further management. I also discussed the patient with thoracic surgeon. This note is for consultation performed yesterday on 08/05/2017. This is a 62-year-old lady with a history of smoking in the past, but she stopped smoking 20 years ago. She has a past history of arthritis for over two years and history of uterine prolapse and section. About two weeks ago, she developed respiratory illness with cough, sputum production, which was mucoid, chills, dyspnea, and decreased appetite. She was treated with antibiotics. However although she does not have chills now, but she complains of cough and shortness of breath on exertion with some tightness in the chest and scanty sputum after bouts of cough. CT of the chest shows left upper lobe lung mass and mediastinal lymphadenopathy. The patient was admitted for further evaluation, procedure, and treatment. She stopped smoking over 20 years ago. She does not consume alcohol. There is no history of allergy. PAST MEDICAL HISTORY: Arthritis, uterine prolapse, and section. FAMILY HISTORY: Reported as unremarkable. REVIEW OF SYSTEMS: NEURO: Unremarkable. HEENT: Complains of postnasal drip. CARDIOVASCULAR SYSTEMS: No significant symptoms reported except for shortness of breath on exertion with the feeling of tightness in the chest. RESPIRATORY: As stated above with shortness of breath, cough, and chest tightness. GI: Complaints of diminished appetite and has lost some weight. RENAL: No symptoms. MUSCULOSKELETAL: Arthritis reported. ENDOCRINE: No history of diabetes or blood disorders. No significant history obtained. PHYSICAL EXAMINATION: GENERAL: The patient is alert, oriented. She was not in acute distress at rest. VITAL SIGNS: Blood pressure 110/64, temperature 99.1, pulse 98, respirations 20 per minute, and oxygen saturation on room air was 94%. NECK: Supple. There was no lymphadenopathy. HEENT: Unremarkable. HEART: Regular. No gallop, rhythm. LUNGS: Diminished breath sounds over the lung bases and left upper lobe area and occasional rhonchi. ABDOMEN: Soft. EXTREMITIES: No edema. Deep tendon reflexes showed no abnormality. Motor and sensory examination showed no abnormality. LABORATORY DATA: White count 19,800, hemoglobin 9, platelet count 545,000 with leukocyte 83%, bands 16, sed rate 84. Serum sodium 145, potassium 4, BUN 6, troponin less than 0.012. CEA 7.5, proBNP 88. CT of the chest reported to show large left pleural based left upper lobe mass directly extending to the hilum with extensive associated mediastinal lymphadenopathy and narrowing of the left upper lobe pulmonary artery branches. IMPRESSION: Respiratory insufficiency. Left upper lobe mass with mediastinal lymphadenopathy. Pneumonitis. RECOMMENDATIONS AND PLAN: I agree with management. Further workup as needed. I have ordered consult for intervention radiologist for transthoracic needle aspiration biopsy of the lung mass. The patient has been started on antibiotics for pneumonitis, and also oxygen and bronchodilators. PFT and bone scan will be done and oxygen therapy continued. Case discussed with PMD and thoracic surgeon. Joaquín Olvera MD
[2017-08-07] MEDS: Piperacillin/Tazobact 3.375 GM in Sodium Chloride 0.9% 100 ML IVPB SCH ×2 (01:30→08:01)
[2017-08-07] MEDS: Albuterol HFA 90 mcg/actuation (8 g) IH SCH ×2 (01:36→08:12)
[2017-08-07 07:19] LABS: BASO # 0.1 K/uL (0.0-0.2); BASO % 0.7 % (0.0-2.0); EOS # 0.4 K/uL (0.0-0.7); EOS % 2.7 % (0.0-4.0); HEMOGLOBIN 9.2 g/dL (11.0-16.0); LYMPH # 1.8 K/uL (1.0-4.3); LYMPH % 12.8 % (20.0-40.0); MEAN CELL VOLUME 73.3 fL (81.0-99.0); MEAN CORPUSCULAR HEMOGLOBIN 23.4 pg (27.0-31.0); MEAN CORPUSCULAR HGB CONC 31.9 g/dL (33.0-37.0); MEAN PLATELET VOLUME 6.9 fL (7.2-11.7); MONO # 0.9 K/uL (0.0-0.8); MONO % 6.5 % (0.0-10.0); NEUT % 77.3 % (50.0-75.0); RBC 3.92 Mil/uL (3.80-5.20); RED CELL DISTRIBUTION WIDTH 17.9 % (11.5-14.5); WHITE BLOOD COUNT 14.2 K/uL (4.8-10.8)
--- NOTE | 2017-08-07 07:30 | PN ---
DATE: SUBJECTIVE: The patient is alert, oriented, sitting with the visitors, her daughter is with the patient. PHYSICAL EXAMINATION: VITAL SIGNS: The patient is afebrile with blood pressure of 124/70, pulse 99, respirations 20, hemoglobin oxygen saturation of 96% on room air. GENERAL: The patient feels comfortable. She feels her dyspnea is a lot easier after therapy including inhalation bronchodilators. HEART: Regular. There is no gallop rhythm. LUNGS: Diminished breath sounds over lung bases, rhonchi decreasing. ABDOMEN: Soft. LEGS: No edema. The patient was seen by a thoracic surgeon. IMPRESSION: Respiratory insufficiency, left upper lobe lung mass with clear mediastinal lymphadenopathy, pneumonitis. PLAN: To continue with current management and follow with specialist including thoracic surgeon and interventional radiologist. Joaquín Olvera MD
[2017-08-07 07:57] VITALS: O2SAT 95
[2017-08-07] MEDS ORDERED: Propofol 10 mg/ml Inj (20 ML) ONE (09:39)
[2017-08-07] MEDS ORDERED: Midazolam 2 MG/2 ML VIAL ONE (09:40)
--- NOTE | 2017-08-07 10:13 | PCM.IRP ---
History of Present Illness - History of Present Illness History of Present Illness: IR requested for LISA mass biopsy. CT reviewed. Pt with extensive subcarinal, hilar, ap window, anterior mediastinal adopathy. There is a component of atelectasis in the previously measured mass. Percutaneous biospy is not possible secondary to pulmonary arteries coursing through the mass. Recommend bronchoscopy. Objective - Vital Signs/Intake and Output Vital Signs (last 24 hours): Vital Signs - 24 hr 08/06/17 08/07/17 08/07/17 16:00 00:00 04:00 Temperature 100.6 F H 100.4 F H 98.6 F Pulse Rate 110 H 108 H Respiratory 20 20 Rate Blood Pressure 112/72 105/67 O2 Sat by Pulse 95 93 L Oximetry 08/07/17 07:55 Temperature 98.7 F Pulse Rate 100 H Respiratory 20 Rate Blood Pressure 124/72 O2 Sat by Pulse 95 Oximetry Intake and Output (last 12 hours): Intake & Output 08/06/17 08/07/17 08/07/17 18:59 06:59 18:59 Intake Total 900 Balance 900 Intake: Intake, IV Amount 200 Right Forearm 200 Oral 700 Other: # Voids Urine, Voided 4 # Bowel Movements 1 - Medications Medications: Current Medications Albuterol (Ventolin Hfa 90 Mcg/Actuation (8 G)) 2 puff IH RQ6 [facility] Last Admin: 08/07/17 08:12 Dose: Not Given Albuterol Sulfate (Albuterol 0.042% Inhal Saida (1.25mg/3ml) Ud) 1.25 mg INH RQ6 PRN Last Admin: 08/06/17 07:50 Dose: 1.25 mg Alprazolam (Xanax) 0.5 mg PO HS PRN PRN Reason: Anxiety Last Admin: 08/05/17 21:48 Dose: 0.5 mg Heparin Sodium (Porcine) (Heparin) 5,000 units IV Q12 [facility] Last Admin: 08/06/17 10:00 Dose: Not Given Piperacillin Sod/Tazobactam (Sod 3.375 gm/ Sodium Chloride) 100 mls @ 100 mls/ hr IVPB Q6H [facility] PRN Reason: Protocol Last Admin: 08/07/17 08:01 Dose: 100 mls/hr Promethazine HCl (Phenergan Syrup) 6.25 mg PO QID [facility] Last Admin: 08/06/17 21:50 Dose: 6.25 mg - Labs Labs (last 24 hours): Laboratory Results - last 24 hr 08/06/17 08/06/17 08/07/17 17:00 17:00 07:10 WBC 14.2 H RBC 3.92 Hgb 9.2 L Hct 28.8 L MCV 73.3 L MCH 23.4 L MCHC 31.9 L RDW 17.9 H Plt Count 477 H MPV 6.9 L Neut % (Auto) 77.3 H Lymph % (Auto) 12.8 L [place] % (Auto) 6.5 Eos % (Auto) 2.7 Baso % (Auto) 0.7 Neut # (Auto) 11.0 H Lymph # (Auto) 1.8 [place] # (Auto) 0.9 H Eos # (Auto) 0.4 Baso # (Auto) 0.1 PT 19.5 H INR 1.7 APTT 34 Sodium Potassium Chloride Carbon Dioxide BUN CA 125 Antigen 08/07/17 07:10 WBC RBC Hgb Hct MCV MCH MCHC RDW Plt Count MPV Neut % (Auto) Lymph % (Auto) [place] % (Auto) Eos % (Auto) Baso % (Auto) Neut # (Auto) Lymph # (Auto) [place] # (Auto) Eos # (Auto) Baso # (Auto) PT INR APTT Sodium 140 Potassium 3.8 Chloride 98 Carbon Dioxide 30 BUN 9 CA 125 Antigen 440 H
[2017-08-07] MEDS: Promethazine 6.25 MG/5 ML CUP PO SCH ×2 (10:52→13:19)
--- NOTE | 2017-08-07 13:50 | CP.PCM.PN ---
Subjective - Date & Time of Evaluation Date of Evaluation: 08/07/17 Time of Evaluation: 13:40 - Subjective Subjective: I was able to review ct of chest with Radiologist today-and concluded that the pt has a massive lymphadenopathy(subcarina, hilar, ap window, and ant mediastinum) and not able to assess lung mass. IR not able to bx today due to close proximity to major vessels. I would recommend bronch and transbronchial bx on nodes. If bronch bx fails, then consider open bx via a limited thoracotomy. a/p: 1. Hilar and Mediastinal lymphadenopathy. 2. PET scan, PFTs with ABGs, 3. Oncology consult. 4. d/w Dr. Gallagher and Susie(BRIGADIER). Objective - Vital Signs/Intake and Output Vital Signs (last 24 hours): Temp Pulse Resp BP Pulse Ox 98.7 F 100 H 20 124/72 95 08/07/17 07:55 08/07/17 07:55 08/07/17 07:55 08/07/17 07:55 08/07/17 07:55 - Medications Medications: Current Medications Albuterol (Ventolin Hfa 90 Mcg/Actuation (8 G)) 2 puff IH RQ6 [facility] Last Admin: 08/07/17 08:12 Dose: Not Given Albuterol Sulfate (Albuterol 0.042% Inhal Saida (1.25mg/3ml) Ud) 1.25 mg INH RQ6 PRN Last Admin: 08/06/17 07:50 Dose: 1.25 mg Alprazolam (Xanax) 0.5 mg PO HS PRN PRN Reason: Anxiety Last Admin: 08/05/17 21:48 Dose: 0.5 mg Heparin Sodium (Porcine) (Heparin) 5,000 units IV Q12 [facility] Last Admin: 08/07/17 10:55 Dose: Not Given Piperacillin Sod/Tazobactam Sod (Zosyn 3.375 Gm Iv Premix) 3.375 gm in 50 mls @ 100 mls/hr IVPB Q6H [facility] PRN Reason: Protocol Last Admin: 08/07/17 13:20 Dose: 100 mls/hr Promethazine HCl (Phenergan Syrup) 6.25 mg PO QID [facility] Last Admin: 08/07/17 13:19 Dose: 6.25 mg - Labs Labs: 08/07/17 07:10 08/07/17 07:10 PT 19.5 SECONDS (9.7-12.2) H 08/06/17 17:00 INR 1.7 08/06/17 17:00 APTT 34 SECONDS (21-34) 08/06/17 17:00
[2017-08-07] MEDS ORDERED: Piperacill/Tazo 3.375gm in Dex 3.375 GM/50 ML BAG IVPB SCH (14:00)
[2017-08-07 16:00] VITALS: BP 148/82; PULSE 106; TEMP 99.1
--- NOTE | 2017-08-07 17:06 | CP.PCM.PN ---
Subjective - Date & Time of Evaluation Date of Evaluation: 08/07/17 Time of Evaluation: 17:06 - Subjective Subjective: Alert and orientedx3, no acute distress. Objective - Vital Signs/Intake and Output Vital Signs (last 24 hours): Temp Pulse Resp BP Pulse Ox 99.1 F 106 H 20 148/82 95 08/07/17 15:59 08/07/17 15:59 08/07/17 15:59 08/07/17 15:59 08/07/17 15:59 Intake and Output: 08/07/17 08/07/17 06:59 18:59 Intake Total 580 Balance 580 - Medications Medications: Current Medications Albuterol (Ventolin Hfa 90 Mcg/Actuation (8 G)) 2 puff IH RQ6 [facility] Last Admin: 08/07/17 08:12 Dose: Not Given Albuterol Sulfate (Albuterol 0.042% Inhal Saida (1.25mg/3ml) Ud) 1.25 mg INH RQ6 PRN Last Admin: 08/06/17 07:50 Dose: 1.25 mg Alprazolam (Xanax) 0.5 mg PO HS PRN PRN Reason: Anxiety Last Admin: 08/05/17 21:48 Dose: 0.5 mg Heparin Sodium (Porcine) (Heparin) 5,000 units IV Q12 [facility] Last Admin: 08/07/17 10:55 Dose: Not Given Piperacillin Sod/Tazobactam Sod (Zosyn 3.375 Gm Iv Premix) 3.375 gm in 50 mls @ 100 mls/hr IVPB Q6H [facility] PRN Reason: Protocol Last Admin: 08/07/17 13:20 Dose: 100 mls/hr Promethazine HCl (Phenergan Syrup) 6.25 mg PO QID [facility] Last Admin: 08/07/17 13:19 Dose: 6.25 mg - Labs Labs: 08/07/17 07:10 08/07/17 07:10 PT 19.5 SECONDS (9.7-12.2) H 08/06/17 17:00 INR 1.7 08/06/17 17:00 APTT 34 SECONDS (21-34) 08/06/17 17:00 Assessment and Plan - Assessment and Plan (Free Text) Assessment: Patient admitted with lung mass , dyspnea, seen and examined. Alert and orientedx3, ambulatory. Denies acute distress or shortness of breath. Seen by DR Lu and DR Ann today. Unable to do lung biopsy by IR today. As per DR Lu he would arrange for PET scan and lung biopsy from his office. Discussed with DR Gallagher, who agreed with the plan, to discharge home today and follow up with DR Lu in his office [facility]. Office number and address given, advised to call in am since the office was closed. Advised to follow up with PMD IN 1 WEEK. RX given for zithromax 500mg po dailyx5 days more. Patient verbalized understanding of the instructions given.
--- NOTE | 2017-08-07 20:27 | CON ---
DATE: SUBJECTIVE: This is a 62-year-old woman with a left upper lobe lung mass. Cigarettes, she smoked 20 years ago and stopped. Alcohol, negative. ALLERGIES: NONE. MEDICATIONS: None. SOCIAL HISTORY: The patient lives with her boyfriend and her daughter. FAMILY HISTORY: There is no cancer in the family. REVIEW OF SYSTEMS: She said she has been feeling very well until recently when she started developing a chill and mild cough and she went to doctor who found a mass in the lung and an infection with possibility of pneumonia. PHYSICAL EXAMINATION: SKIN: No petechiae. No bruises. HEENT: Anicteric. NODES: Nonpalpable in the axillary, cervical, supraclavicular, inguinal regions. LUNGS: Clear at present. No vertebral tenderness. The patient is able to lie flat. HEART: S1 and S2. ABDOMEN: Shows no liver, no spleen, no tenderness. No rebound. No ascites. EXTREMITIES: No edema. CENTRAL NERVOUS SYSTEM: No focal finding. The patient has left upper lobe mass with an infection behind it and possible . She will go for the biopsy today, Interventional Radiology. I explained to her that we are looking for a cancer, and I explained that we will ultimately send the pathology also for special studies for genetic markers, for target therapy and immunotherapy as well. Most likely, I told her that she will be discharged on p.o. antibiotic as we wait for the reports and also as we do a PET scan as an outpatient. I will see her tomorrow after the biopsy and I gave her an appointment to see me in the office next week pending discharge. David Lu MD
--- NOTE | 2017-08-07 22:52 | CP.PCM.DIS ---
Provider - Provider Date of Admission: 08/04/17 13:49 Attending physician: Scott Gallagher MD Time Spent in preparation of Discharge (in minutes): 24 Diagnosis - Discharge Diagnosis (1) Dyspnea Status: Acute (2) Lung mass Status: Acute (3) Arthritis Status: Acute (4) Pharyngitis Status: Acute Hospital Course - Lab Results Lab Results: Micro Results 08/04/17 10:55 Sputum Gram Stain - Final 08/04/17 10:55 Sputum Sputum Culture - Final NORMAL ORAL MICA 08/06/17 14:30 Sputum Gram Stain - Final Most Recent Lab Values WBC 14.2 K/uL (4.8-10.8) H 08/07/17 07:10 RBC 3.92 Mil/uL (3.80-5.20) 08/07/17 07:10 Hgb 9.2 g/dL (11.0-16.0) L 08/07/17 07:10 Hct 28.8 % (34.0-47.0) L 08/07/17 07:10 MCV 73.3 fL (81.0-99.0) L 08/07/17 07:10 MCH 23.4 pg (27.0-31.0) L 08/07/17 07:10 MCHC 31.9 g/dL (33.0-37.0) L 08/07/17 07:10 RDW 17.9 % (11.5-14.5) H 08/07/17 07:10 Plt Count 477 K/uL (130-400) H 08/07/17 07:10 MPV 6.9 fL (7.2-11.7) L 08/07/17 07:10 Neut % (Auto) 77.3 % (50.0-75.0) H 08/07/17 07:10 Lymph % (Auto) 12.8 % (20.0-40.0) L 08/07/17 07:10 [place] % (Auto) 6.5 % (0.0-10.0) 08/07/17 07:10 Eos % (Auto) 2.7 % (0.0-4.0) 08/07/17 07:10 Baso % (Auto) 0.7 % (0.0-2.0) 08/07/17 07:10 Neut # (Auto) 11.0 K/uL (1.8-7.0) H 08/07/17 07:10 Lymph # (Auto) 1.8 K/uL (1.0-4.3) 08/07/17 07:10 [place] # (Auto) 0.9 K/uL (0.0-0.8) H 08/07/17 07:10 Eos # (Auto) 0.4 K/uL (0.0-0.7) 08/07/17 07:10 Baso # (Auto) 0.1 K/uL (0.0-0.2) 08/07/17 07:10 Neutrophils % (Manual) 91 % (50-75) H 08/04/17 11:29 Band Neutrophils % 2 % (0-2) 08/04/17 11:29 Lymphocytes % (Manual) 4 % (20-40) L 08/04/17 11:29 Monocytes % (Manual) 1 % (0-10) 08/04/17 11:29 Eosinophils % (Manual) 1 % (0-4) 08/04/17 11:29 Basophils % (Manual) 1 % (0-2) 08/04/17 11:29 Platelet Estimate Increased (NORMAL) H 08/04/17 11:29 Hypochromasia (manual) Slight 08/04/17 11:29 Poikilocytosis (manual Slight 08/04/17 11:29 Anisocytosis (manual) Slight 08/04/17 11:29 Microcytosis (manual) Slight 08/04/17 11:29 ESR 84 mm/hr (0-20) H 08/04/17 11:29 PT 19.5 SECONDS (9.7-12.2) H 08/06/17 17:00 INR 1.7 08/06/17 17:00 APTT 34 SECONDS (21-34) 08/06/17 17:00 Sodium 140 mmol/L (132-148) 08/07/17 07:10 Potassium 3.8 mmol/L (3.6-5.2) 08/07/17 07:10 Chloride 98 mmol/L (98-107) 08/07/17 07:10 Carbon Dioxide 30 mmol/L (22-30) 08/07/17 07:10 BUN 9 mg/dL (7-17) 08/07/17 07:10 Troponin I < 0.0120 ng/mL (0.00-0.120) 08/04/17 11:51 NT-Pro-B Natriuret Pep 88.3 pg/mL (0-900) 08/04/17 11:51 Carcinoembryonic Ag 7.5 ng/mL (0-3.0) H 08/05/17 06:06 CA 125 Antigen 440 U/mL (0-35) H 08/07/17 07:10 Influenza Typ A,B (EIA) Negative for flu a/b (NEGATIVE) 08/04/17 11:45 Discharge Exam - Head Exam Head Exam: NORMOCEPHALIC - Eye Exam Eye Exam: Normal appearance Pupil Exam: NORMAL ACCOMODATION - ENT Exam ENT Exam: Normal Exam - Neck Exam Neck exam: Normal Inspection - Respiratory Exam Respiratory Exam: Decreased Breath Sounds - Cardiovascular Exam Cardiovascular Exam: REGULAR RHYTHM - GI/Abdominal Exam GI & Abdominal Exam: Normal Bowel Sounds - Rectal Exam Rectal Exam: Deferred - Exam External exam: NORMAL EXTERNAL EXAM - Extremities Exam Extremities exam: tenderness - Back Exam Back exam: NORMAL INSPECTION - Neurological Exam Neurological exam: Oriented x3 - Psychiatric Exam Psychiatric exam: Depressed - Skin Skin Exam: Dry Discharge Plan - Discharge Medications Prescriptions: Azithromycin [Zithromax] 500 mg PO DAILY #5 tablet - Follow Up Plan Condition: STABLE Disposition: HOME/ ROUTINE Instructions: Azithromycin (Systemic), Shortness of Breath (Dyspnea) (DC) Referrals: David Lu MD [Staff Provider] - Scott Gallagher MD [Staff Provider] -
--- NOTE | 2017-08-08 08:01 | PN ---
DATE: SUBJECTIVE: The patient is alert, oriented, afebrile. PHYSICAL EXAMINATION: GENERAL: The patient is alert. Her is by her bedside. The patient is not in acute distress. Her dyspnea has improved at rest. VITAL SIGNS: Blood pressure 124/72, pulse 100 per minute, respiration 20 per minute, hemoglobin oxygen saturation of 95% on room air. HEART: Regular. There is no gallop rhythm. LUNGS: Diminished breath sounds over the lung bases. Rhonchi decreased. ABDOMEN: Soft. LEGS: No edema Lab. studies [place] [address] [place] [address]. Diagnostic bronchoscopy was fully discussed with the patient. Its diagnostic importance and complications were explained. Fully comprehending the implications the patient declined the procedure. Discussed with intervention radiologist, thoracic surgeon and pmd The patient was seen by the oncologist. IMPRESSION: Respiratory insufficiency, mediastinal lymphadenopathy with left upper lobe lung mass located peripherally, pneumonitis and arthritis. PLAN: Recommend to continue with the current measures and continue with further management. Discussed with the interventional radiologist, thoracic surgeon and Pmd. Joaquín Olvera MD JUSTINA
== END 2017-08-07 17:36 | disposition home or self-care (01) | DRG 89 ==
LOC: C.ER 10:34 → C.9E 13:49 → C.3T 17:48
PROVIDERS: ADMIT Internal Medicine; ATTEND Internal Medicine
DX: J18.9 Pneumonia, unspecified organism (principal); J98.11 Atelectasis; J02.9 Acute pharyngitis, unspecified; R91.8 Other nonspecific abnormal finding of lung field; R06.00 Dyspnea, unspecified; R59.0 Localized enlarged lymph nodes; M19.90 Unspecified osteoarthritis, unspecified site; N81.4 Uterovaginal prolapse, unspecified; Z53.8 Procedure and treatment not carried out for other reasons; Z87.891 Personal history of nicotine dependence; Z87.01 Personal history of pneumonia (recurrent)

== ENCOUNTER 2017-08-31 13:43 | Emergency (ER) | payer MEDICAID ==
[2017-08-31 13:44] VITALS: BMI 31.5
[2017-08-31 14:10] VITALS: RESP 22
[2017-08-31] MEDS ORDERED: Sodium Chloride 0.9% 500 ML IV ONE ×2 (14:20→15:27)
[2017-08-31 14:28] LABS: BASO # 0.1 K/uL (0.0-0.2); BASO % 0.9 % (0.0-2.0); EOS # 0.4 K/uL (0.0-0.7); EOS % 2.2 % (0.0-4.0); HEMOGLOBIN 8.8 g/dL (11.0-16.0); LYMPH # 1.8 K/uL (1.0-4.3); LYMPH % 11.7 % (20.0-40.0); MEAN CELL VOLUME 73.8 fL (81.0-99.0); MEAN CORPUSCULAR HEMOGLOBIN 22.8 pg (27.0-31.0); MEAN CORPUSCULAR HGB CONC 30.9 g/dL (33.0-37.0); MEAN PLATELET VOLUME 6.9 fL (7.2-11.7); MONO # 0.9 K/uL (0.0-0.8); NEUT # 12.5 K/uL (1.8-7.0); NEUT % 79.2 % (50.0-75.0); RBC 3.85 Mil/uL (3.80-5.20); RED CELL DISTRIBUTION WIDTH 18.9 % (11.5-14.5); WHITE BLOOD COUNT 15.7 K/uL (4.8-10.8)
[2017-08-31 14:37] LABS: INR 1.6; PROTHROMBIN TIME 18.4 SECONDS (9.7-12.2)
[2017-08-31 14:41] LABS: ABG ALLEN TEST P; ARTERIAL BLOOD GAS HCO3 32.1 mmol/L (21-28); ARTERIAL BLOOD GAS O2 SAT 97.1 % (95-98); ARTERIAL BLOOD GAS PCO2 39 mm/Hg (35-45); ARTERIAL BLOOD GAS PH 7.53 (7.35-7.45); ARTERIAL BLOOD GAS PO2 73 mm/Hg (80-100); ARTERIAL BLOOD GAS TCO2 33.8 mmol/L (22-28)
--- NOTE | 2017-08-31 14:43 | C.PDOC ---
History Of Present Illness Patient with PMHx of RA presents to ED c/o left sided chest/upper back pain, worse with deep breaths and cough, as well as persistent SOB since yesterday. She admits to productive cough with clear sputum for same amount of time. Patient denies fever, abdominal pain, vomiting/diarrhea, dysuria, sore throat, body aches. Patient diagnosed with left upper lobe mass at [facility] (08/04), currently scheduled for outpatient biopsy pending cardiac clearance. PMD Dr. Gallagher Pulmonary Dr. Randolph Aguillon Time Seen by Provider: 08/31/17 13:48 Chief Complaint (Nursing): Shortness Of Breath History Per: Patient History/Exam Limitations: no limitations Onset/Duration Of Symptoms: Days (2) Current Symptoms Are (Timing): Still Present Quality: Sharp Exacerbating Factor(s): Coughing Current Respiratory Medications: See Home Med List Severity: Moderate Past Medical History Reviewed: Historical Data, Nursing Documentation, Vital Signs Vital Signs: Last Vital Signs Temp 98 F 08/31/17 18:21 Pulse 107 H 08/31/17 18:21 Resp 22 08/31/17 18:21 BP 126/69 08/31/17 18:21 Pulse Ox 95 08/31/17 18:21 - Medical History PMH: Arthritis, Pneumonia (07/31/17) Other PMH: rheumatoid arthritis Family History: States: No Known Family Hx - Social History Hx Tobacco Use: No Hx Alcohol Use: No Hx Substance Use: No - Immunization History Hx Tetanus Toxoid Vaccination: No Hx Influenza Vaccination: No Hx Pneumococcal Vaccination: No Review Of Systems Except As Marked, All Systems Reviewed And Found Negative. Constitutional: Negative for: Fever, Chills Cardiovascular: Positive for: Chest Pain. Negative for: Palpitations Respiratory: Positive for: Cough, Shortness of Breath Gastrointestinal: Negative for: Nausea, Vomiting, Abdominal Pain, Diarrhea Genitourinary: Negative for: Dysuria, Hematuria Skin: Negative for: Rash Physical Exam - Physical Exam Appears: Well, Non-toxic, In Acute Distress Skin: Normal Color, Warm, Dry, No Rash Oral Mucosa: Moist Cardiovascular: Rhythm Regular (tachycardic ) Respiratory: Decreased Breath Sounds (left upper lobe), Accessory Muscle Use ( mild), No Rales, No Rhonchi, No Wheezing, Other (tachypnic ) Gastrointestinal/Abdominal: Normal Exam, Bowel Sounds, Soft, No Tenderness Extremity: Normal ROM, No Pedal Edema, No Calf Tenderness Pulses: Left Dorsalis Pedis: Normal, Right Dorsalis Pedis: Normal Neurological/Psych: Oriented x3 ED Course And Treatment - Laboratory Results Result Diagrams: 08/31/17 14:25 08/31/17 14:25 ECG: Interpreted By Me, Viewed By Me (sinus tachycardia 113 bpm, left axis deviation, T wave inversions aVL, V2, V3, no acute ST changes) ECG Interpretation: Abnormal O2 Sat by Pulse Oximetry: 92 (RA) Pulse Ox Interpretation: Abnormal - CT Scan/US CTA CHEST Other Rad Studies (CT/US): Read By Radiologist, Radiology Report Reviewed CT/US Interpretation: Accession No. : [id number]. Patient Name / ID : AMY ASTUDILLO / [id number]. Exam Date : 08/31/2017 15:54:13 ( Approved ). Study Comment : Sex / Age : F / 62Y. Creator : Daryl Rain MD. Dictator : Ob/Gyn Doctor : Division Chief : Daryl Rain MD. Approver2 : Report Date : 08/31/2017 16:32:15. My Comment : . PROCEDURE: CT Chest with contrast (Pulmonary Angiogram). HISTORY: SOB, HYPOXIA, LEFT SIDED LUNG MASS. COMPARISON: Comparison made with prior CTA chest dated 08/04/2017. Great. TECHNIQUE: Axial computed tomography images were obtained of the chest in the pulmonary arterial phase of enhancement. Coronal and sagittal reformatted images were created and reviewed. Intravenous contrast dose: Radiation dose: Total exam DLP = 459.40 mGy-cm. This CT exam was performed using one or more of the following dose reduction techniques: Automated exposure control, adjustment of the mA and/or kV according to patient size, and/ or use of iterative reconstruction technique. FINDINGS: PULMONARY ARTERIES: Pulmonary trunk is enlarged measuring approximately 4 cm possibly due to localized mild narrowing of the right main pulmonary artery secondary to large left mediastinal -hilar and upper lobe mass density consistent with tumor and malignant adenopathy. Pulmonary trunk, right and left main pulmonary arteries are patent. There is marked compression and narrowing of the left upper lobe pulmonary branches nonvisualization of the distal branches possibly due to thrombosis secondary to chronic compression. Mid. There are also small filling defects seen within proximal segmental branches right lower lobe and possibly right upper lobe branch as well. AORTA: The ascending thoracic aorta measures approximately 3.67 cm and descending thoracic aorta measures approximately 2.57 cm. LUNGS: Large left upper lobe mass lesion which extends from or into the mediastinum and left hilar region. . This lesion appears to have increased in size. There are also atelectatic changes seen in the left upper lobe and lower lobe which have progressed. Small left-sided effusion is also felt to be present. Mild atelectasis seen in the right lower lung field and middle lobe. PLEURAL SPACES: Unremarkable. No effusion or pneumothorax. HEART: Cardiomegaly. There also appears to be a trace pericardial effusion. LYMPH NODES: As above. BONES, CHEST WALL: Unremarkable. No fracture or destructive lesion. OTHER FINDINGS: Enlarged left adrenal gland. Small hiatal hernia. Borderline splenomegaly. IMPRESSION: Markedly increased size on left upper lobe mass with extension either into or out from the mediastinum and hilum regions. The lesion also compresses the left mainstem bronchus with that increased diameter of the pulmonary trunk compared the prior exam. There also appears to be marked compressive effects with tapering of the left upper lobe pulmonary branches with distal branches not visualized wall likely representing compressed and thrombosed vessels. Atelectatic increased atelectasis in the left upper and lower lobes. Suspect small PE within segmental branch right lower lobe and possibly right upper and lower lobes. Small left-sided effusion. Cardiomegaly with size suspect a small pericardial effusion. These findings discussed with Dr. Ruth are approximately 4:25 p.m. with written down and read back verification Progress Note: Blood work, UA, EKG, CXR, ABG, CT angio chest ordered and reviewed. CTA chest shows right sided PE - SC Lovenox given. 5:00pm- Discussed findings and patient with her foot doctor Dr. Randolph Aguillon - both patient and he are in areement, will transfer patient to [facility] for further treatment/care. He accepts patient for transfer. Reevaluation Time: 17:10 Reassessment Condition: Improved (Patient resting comfortably, on 2L O2, no current accessory muscle use. Pending transfer to [facility].) Critical Care Time - Critical Care Note Total Time (in mins): 35 Documented critical care: time excludes all time spent performing seperately billable procedures. Disposition - Disposition Disposition: Trans to Other Acute Care Hosp Disposition Time: 17:10 Condition: GUARDED Forms: [facility] (Palestinian) - Clinical Impression Clinical Impression: Acute pulmonary embolism, Lung mass, Dyspnea, Tachycardia, Pericardial effusion , Pleural effusion
[2017-08-31 14:53] LABS: ALB/GLOB RATIO 0.8 (1.0-2.1); ALBUMIN 3.4 g/dL (3.5-5.0); ALT/SGPT 67 U/L (9-52); AST/SGOT 50 U/L (14-36); B-TYPE NATRIURETIC PEPTIDE 94.5 pg/mL (0-900); BLOOD UREA NITROGEN 8 mg/dL (7-17); CALCIUM 8.6 mg/dl (8.6-10.4); CK-MB < 0.22 ng/mL (0.0-3.38); GFR AFRICAN-AMERICAN > 60; GFR NON-AFRICAN AMERICAN > 60
[2017-08-31] MEDS ORDERED: Iodixanol 320 MG/ML 100 ML BOTTLE IV ONE (15:29)
--- NOTE | 2017-08-31 15:32 | RAD ---
PROCEDURE: CHEST RADIOGRAPH, 1 VIEW HISTORY: SOB COMPARISON: Comparison made the with chest radiograph and CTA chest both dated FINDINGS: LUNGS: Previously noted left upper lobe mass is poorly delineated due to further opacification of the left alicia thorax . Findings may be secondary to postobstructive atelectasis. Underlying infiltrate or effusion cannot be excluded. There is associated shift of the mediastinum from right to left. With what appears represent compensatory overinflation of the right alicia thorax PLEURA: As above. No pneumothorax CARDIOVASCULAR: Heart size is difficult to assess due to silhouetting of the left cardiac border. OSSEOUS STRUCTURES: No significant abnormalities. VISUALIZED UPPER ABDOMEN: Normal. OTHER FINDINGS: None. IMPRESSION: Previously noted left upper lobe mass is poorly delineated due to further opacification of the left alicia thorax . Findings may be secondary to postobstructive atelectasis. Underlying infiltrate or effusion cannot be excluded. There is associated shift of the mediastinum from right to left. With what appears represent compensatory overinflation of the right alicia thorax
--- NOTE | 2017-08-31 16:34 | CT ---
PROCEDURE: CT Chest with contrast (Pulmonary Angiogram) HISTORY: SOB, HYPOXIA, LEFT SIDED LUNG MASS COMPARISON: Comparison made with prior CTA chest dated 08/04/2017. Great TECHNIQUE: Axial computed tomography images were obtained of the chest in the pulmonary arterial phase of enhancement. Coronal and sagittal reformatted images were created and reviewed. Intravenous contrast dose: Radiation dose: Total exam DLP = 459.40 mGy-cm. This CT exam was performed using one or more of the following dose reduction techniques: Automated exposure control, adjustment of the mA and/or kV according to patient size, and/or use of iterative reconstruction technique. FINDINGS: PULMONARY ARTERIES: Pulmonary trunk is enlarged measuring approximately 4 cm possibly due to localized mild narrowing of the right main pulmonary artery secondary to large left mediastinal -hilar and upper lobe mass density consistent with tumor and malignant adenopathy. Pulmonary trunk, right and left main pulmonary arteries are patent. There is marked compression and narrowing of the left upper lobe pulmonary branches nonvisualization of the distal branches possibly due to thrombosis secondary to chronic compression. Mid. There are also small filling defects seen within proximal segmental branches right lower lobe and possibly right upper lobe branch as well. AORTA: The ascending thoracic aorta measures approximately 3.67 cm and descending thoracic aorta measures approximately 2.57 cm. LUNGS: Large left upper lobe mass lesion which extends from or into the mediastinum and left hilar region. . This lesion appears to have increased in size. There are also atelectatic changes seen in the left upper lobe and lower lobe which have progressed. Small left-sided effusion is also felt to be present. Mild atelectasis seen in the right lower lung field and middle lobe. PLEURAL SPACES: Unremarkable. No effusion or pneumothorax HEART: Cardiomegaly. There also appears to be a trace pericardial effusion. LYMPH NODES: As above BONES, CHEST WALL: Unremarkable. No fracture or destructive lesion OTHER FINDINGS: Enlarged left adrenal gland. Small hiatal hernia. Borderline splenomegaly. IMPRESSION: Markedly increased size on left upper lobe mass with extension either into or out from the mediastinum and hilum regions. The lesion also compresses the left mainstem bronchus with that increased diameter of the pulmonary trunk compared the prior exam. There also appears to be marked compressive effects with tapering of the left upper lobe pulmonary branches with distal branches not visualized wall likely representing compressed and thrombosed vessels. Atelectatic increased atelectasis in the left upper and lower lobes. Suspect small PE within segmental branch right lower lobe and possibly right upper and lower lobes. Small left-sided effusion. Cardiomegaly with size suspect a small pericardial effusion. These findings discussed with Dr. Ruth are approximately 4:25 p.m. with written down and read back verification
[2017-08-31] MEDS ORDERED: Enoxaparin 40 mg Syringe SC STA (17:11)
[2017-08-31 17:32] VITALS: TEMP 98
[2017-08-31] MEDS ORDERED: Enoxaparin 100 mg Syringe ONE (17:55)
[2017-08-31 18:22] VITALS: BP 126/69; PULSE 107
[2017-08-31 18:32] VITALS: O2SAT 92
--- NOTE | 2017-09-01 11:58 | CARD ---
APPROVED REPORT EKG Measurement Heart [id number] <Conclusion> Sinus tachycardia Nonspecific T wave abnormality Abnormal ECG
== END 2017-08-31 18:28 | disposition short-term general hospital (02) ==
LOC: C.ER 13:43
DX: I26.99 Other pulmonary embolism without acute cor pulmonale (principal); I31.3 Pericardial effusion (noninflammatory); J90 Pleural effusion, not elsewhere classified; R00.0 Tachycardia, unspecified; R06.00 Dyspnea, unspecified; R91.8 Other nonspecific abnormal finding of lung field
CPT/HCPCS: 36600; 71045; 71275; 80053; 82550; 82553; 82803; 83880; 84484; 85025; 85610; 85730; 87040; 87804; 93005; 96372; 99284; J1650; J7040; Q9967

== ENCOUNTER 2017-09-20 20:48 | Emergency (ER) | payer MEDICAID ==
[2017-09-20 20:48] VITALS: BMI 31.5
[2017-09-20] MEDS ORDERED: Sodium Chloride 0.9% 1,000 ML IV ONE (21:28)
[2017-09-20] MEDS ORDERED: (Novolin R) Insulin Human Regular 100 units/ml vial IV ONE (21:29)
--- NOTE | 2017-09-20 21:31 | C.PDOC ---
History Of Present Illness The patient is a 62 year old female who presents to the ED for evaluation of fever and elevated blood suagr levels. Patient underwent brochoscopy 2 months ago and was diagnosed with unknown type of lung cancer. Patient states she is scheduled to begin chemotherapy next week and has been taking Prednisone for the tumor. At the same time, patient was also noted to have pulmonary emboli. Patient is currently taking Lovenox. Patient was also recently noted to have new onset diabetes related to her prednisone use. Patient states she has had a lowgrade fever for the past couple days and noted her blood sugar to be over 300. Patient denies nausea, vomiting, shortness of breath, abdominal pain. Patient was recently started on Metformin for DM. She reports past history of smoking, stating she quit 20 years ago. Chief Complaint (Nursing): High Blood Sugar History Per: Patient History/Exam Limitations: no limitations Onset/Duration Of Symptoms: Hrs Current Symptoms Are (Timing): Still Present Associated Infectious Symptoms: denies: Nausea, Vomiting Past Medical History Reviewed: Historical Data, Nursing Documentation, Vital Signs Vital Signs: Last Vital Signs Temp 98 F 09/20/17 23:43 Pulse 103 H 09/20/17 23:43 Resp 16 09/20/17 23:43 BP 124/68 09/20/17 23:43 Pulse Ox 96 09/20/17 23:43 - Medical History PMH: Arthritis, Pneumonia (07/31/17) Denies: Chronic Kidney Disease Surgical History: No Surg Hx Family History: States: Unknown Family Hx - Social History Hx Tobacco Use: No Hx Alcohol Use: No Hx Substance Use: No - Immunization History Hx Tetanus Toxoid Vaccination: No Hx Influenza Vaccination: No Hx Pneumococcal Vaccination: No Review Of Systems Constitutional: Positive for: Fever, Other (high blood sugar) Physical Exam - Physical Exam Appears: Non-toxic, No Acute Distress Skin: Normal Color, Warm, Dry, No Other (cyanosis ) Head: Atraumatic, Normacephalic Eye(s): bilateral: Normal Inspection Ear(s): Bilateral: Normal Nose: Normal, No Discharge Oral Mucosa: Moist Throat: Normal, No Erythema, No Exudate Neck: Supple Chest: Symmetrical, No Deformity, No Tenderness Cardiovascular: Rhythm Regular, No Murmur, Other (mild resting tachycardia ) Respiratory: Normal Breath Sounds, No Rales, No Rhonchi, No Wheezing Gastrointestinal/Abdominal: Bowel Sounds, Soft, No Tenderness, No Guarding, No Rebound Extremity: Normal ROM, Capillary Refill (less than 2 seconds ) Neurological/Psych: Oriented x3, Normal Speech, Normal Cognition Additional Physical Exam Comments: vital signs noted. patient has lowgrade fever of 100.8 ED Course And Treatment - Laboratory Results Result Diagrams: 09/20/17 21:53 09/20/17 21:53 O2 Sat by Pulse Oximetry: 97 (on RA) Pulse Ox Interpretation: Normal Medical Decision Making Medical Decision Making: Impression: NIDDM, poorly controlled vs acute febrile illness Plan: * bloodwork * UA * CXR * Tylenol PO * Novolin IVP * IV Fluids * reassess and disposition Progress: Bloodwork, UA, CXR ordered and reviewed. Tylenol PO, Novolin IVP, and IV Fluids administered. Time: 2244 --Left highler mass appeared large at about 3 x 3 cm. No acute lung infiltrates are identified. Disposition - Disposition Referrals: [facility] [Outside] Disposition: HOME/ ROUTINE Disposition Time: 23:54 Condition: FAIR Instructions: Hyperglycemia, Adult Forms: [facility] (Qatari) Print Language: PASHTO - Clinical Impression Clinical Impression: Diabetic complication, Lung mass - Scribe Statement The provider has reviewed the documentation as recorded by the Scribe (Lissa Ahumada) Provider Attestation: All medical record entries made by the Scribe were at my direction and personally dictated by me. I have reviewed the chart and agree that the record accurately reflects my personal performance of the history, physical exam, medical decision making, and the department course for this patient. I have also personally directed, reviewed, and agree with the discharge instructions and disposition.
[2017-09-20] MEDS ORDERED: (Novolin R) Insulin Human Regular 100 units/ml vial ONE (21:46)
[2017-09-20 21:57] LABS: BASO # 0.3 K/uL (0.0-0.2); BASO % 1.2 % (0.0-2.0); EOS # 0.6 K/uL (0.0-0.7); EOS % 2.7 % (0.0-4.0); HEMOGLOBIN 8.5 g/dL (11.0-16.0); LYMPH # 1.9 K/uL (1.0-4.3); LYMPH % 8.7 % (20.0-40.0); MEAN CELL VOLUME 74.6 fL (81.0-99.0); MEAN CORPUSCULAR HEMOGLOBIN 23.1 pg (27.0-31.0); MEAN PLATELET VOLUME 7.1 fL (7.2-11.7); MONO # 0.8 K/uL (0.0-0.8); MONO % 3.7 % (0.0-10.0); NEUT # 18.2 K/uL (1.8-7.0); NEUT % 83.7 % (50.0-75.0); PLATELET COUNT 561 K/uL (130-400); RBC 3.69 Mil/uL (3.80-5.20); RED CELL DISTRIBUTION WIDTH 20.1 % (11.5-14.5); WHITE BLOOD COUNT 21.7 K/uL (4.8-10.8)
[2017-09-20 22:09] LABS: SQUAMOUS EPITHIAL 12 /hpf (0-5); URINE BACTERIA RARE (<OCC); URINE BILIRUBIN NEGATIVE (NEGATIVE); URINE BLOOD NEGATIVE (NEGATIVE); URINE CLARITY Hazy (Clear); URINE COLOR Yellow (YELLOW); URINE GLUCOSE (UA) 3+ mg/dL (Normal); URINE LEUKOCYTE ESTERASE NEG Leu/uL (Negative); URINE PROTEIN 1+ mg/dL (NEGATIVE); URINE UROBILINOGEN NORMAL mg/dL (0.2-1.0)
[2017-09-20 22:13] LABS: ALB/GLOB RATIO 0.7 (1.0-2.1); ALBUMIN 3.3 g/dL (3.5-5.0); ALT/SGPT 50 U/L (9-52); AST/SGOT 49 U/L (14-36); BLOOD UREA NITROGEN 7 mg/dL (7-17); CALCIUM 8.4 mg/dl (8.6-10.4); GFR AFRICAN-AMERICAN > 60; GFR NON-AFRICAN AMERICAN > 60
[2017-09-20 22:18] LABS: BANDS 3 % (0-2); LARGE PLATELETS PRESENT; LYMPHOCYTE 10 % (20-40); MONOCYTE 1 % (0-10); NEUTROPHIL 86 % (50-75); PLATELET ESTIMATE SLIGHTLY INCREASED (NORMAL); TOTAL CELLS COUNTED 100
[2017-09-20 23:44] VITALS: BP 124/68; PULSE 103; RESP 16; TEMP 98
[2017-09-20 23:54] VITALS: O2SAT 97
--- NOTE | 2017-09-21 07:41 | RAD ---
PROCEDURE: CHEST RADIOGRAPH, 1 VIEW HISTORY: SOB COMPARISON: Chest radiographs and Chest CT both from 08/31/2017. FINDINGS: LUNGS: Left perihilar/ suprahilar mass somewhat better defined as left upper lobe airspace disease appears diminished in the interval. The left heart border is obscured completely and may reflect silhouetting by the mass or additional airspace disease. No right-sided airspace disease. PLEURA: No pneumothorax or pleural fluid seen. CARDIOVASCULAR: Poorly evaluated due to lingular airspace disease or left-sided mass obscuring left heart border. OSSEOUS STRUCTURES: No significant abnormalities. VISUALIZED UPPER ABDOMEN: Normal. OTHER FINDINGS: None. IMPRESSION: Lingular airspace disease is not excluded. None is seen the right. Left apical airspace disease appears to have resolved with left hilar/ suprahilar mass better defined currently. Cardiac size is difficult to evaluate.
== END 2017-09-20 23:46 | disposition home or self-care (01) ==
LOC: C.ER 20:48
DX: E11.8 Type 2 diabetes mellitus with unspecified complications (principal); R91.8 Other nonspecific abnormal finding of lung field
CPT/HCPCS: 71045; 80053; 81001; 82009; 82948; 83605; 85025; 87040; 87086; 96360; 99285; J7040